=== PATIENT | female | born 1985 | race Two or more races ===

== ENCOUNTER 2024-10-20 01:15 | Emergency (ER) | payer OTHER ==
[~2024-10-20] VITALS: Ht 160 cm; Wt 93.9 kg
[~2024-10-20 01:15] MED LIST: KAPSPARGO SPRIN50 MG PO
[2024-10-20 01:22] VITALS: BP 158/85; O2SAT 98
[2024-10-20] MEDS ORDERED: CEFTRIAXONE SODIUM 1,000 MG VIAL ONE (02:41)
[2024-10-20] MEDS ORDERED: CEFTRIAXONE SODIUM 1,000 MG VIAL IM STA (02:42)
[2024-10-20] MEDS ORDERED: OxyCODONE HCL 5 MG TABLET (ROXICODONE) PO STA (02:42)
[2024-10-20] MEDS ORDERED: AMOX-CLAV 875-1 EACH PO (02:45)
[2024-10-20] MEDS ORDERED: TRAMADOL HCL50 MG PO (02:45)
== END 2024-10-20 03:11 ==
LOC: ER 01:37
DX: K08.89 Other specified disorders of teeth and supporting structures (principal); I10 Essential (primary) hypertension; Z91.040 Latex allergy status

== ENCOUNTER 2025-01-24 23:03 | Emergency (ER) | payer OTHER ==
[~2025-01-24] VITALS: Ht 160 cm; Wt 90.7 kg
[~2025-01-24 23:03] MED LIST changes: +AMOX-CLAV 875-1 EACH PO; +TRAMADOL HCL50 MG PO
[2025-01-25] MEDS ORDERED: ORPHENADRINE CITRATE 30 MG/ML AMPUL IM STA (05:58)
[2025-01-25] MEDS ORDERED: KETOROLAC TROMETHAMINE 60 MG VIAL IM STA (05:58)
[2025-01-25] MEDS ORDERED: DEXAMETHASONE SODIUM PHOSPHATE 4 MG/ML VIAL IM STA (05:59)
[2025-01-25] MEDS ORDERED: SODIUM CL 0.9% 25 ML IV.SOLN. IV PUSH STA (06:02)
[2025-01-25] MEDS ORDERED: KETOROLAC TROMETHAMINE 60 MG VIAL IM ONE (06:05)
[2025-01-25] MEDS ORDERED: ORPHENADRINE CITRATE 30 MG/ML AMPUL ONE (06:05)
[2025-01-25] MEDS ORDERED: DEXAMETHASONE SODIUM PHOSPHATE 4 MG/ML VIAL ONE (06:05)
[2025-01-25 07:53] LABS: URINE APPEARANCE Clear; URINE BILIRRUBIN Negative (NEGATIVE); URINE BLOOD Negative; URINE COLOR Yellow; URINE GLUCOSE Negative (NEGATIVE); URINE KETONE Negative (NEGATIVE); URINE LEUKOCYTE Negative; URINE NITRATE Negative; URINE PROTEIN Negative (NEGATIVE); URINE UROBILINOGEN 0.2 E.U./dl
[2025-01-25 07:55] LABS: BASO % 0.4 % (0.1-1.2); EOS # 0.15 (0.04-0.54); EOS % 1.6 % (0.7-7.0); LYMPH # 2.44 (1.18-3.74); LYMPH % 26.2 % (19.3-53.1); MEAN PLATELET VOLUME 10.80 fl (9.4-12.4); MONO # 0.88 (0.24-0.82); MONO % 9.5 % (4.7-12.5); NEUT # 5.77 (1.56-6.13); NEUT % 62.1 % (34.0-71.1); RED CELL DISTRIBUTION WIDTH 13.1 % (11.6-14.4)
[2025-01-25 07:57] LABS: URINE BACTERIA 1185.6 uL (0.0-1933); URINE EPITHELIAL CELLS 26.4 uL (0.0-38.8); URINE RBC 2.4 uL (0.0-20.8); URINE WBC 6.1 uL (0.0-23.2)
[2025-01-25 08:20] LABS: BUN CREA RATIO 18.0 (7.0-25.0); CREATININE SERUM 0.56 mg/dL (0.55-1.02); GFR 121.15; GLUCOSE FASTING 90.0 mg/dL (65-100); OSMOLALITY SERUM 280.0 MOSM/KG (275-295)
[2025-01-25 08:25] LABS: URINE CAST 0.00 uL (0.0-1.40)
== END 2025-01-25 12:07 | disposition home or self-care (01) ==
LOC: ER 23:03
PROVIDERS: General Practice
DX: N83.202 Unspecified ovarian cyst, left side (principal); N23 Unspecified renal colic; Z88.6 Allergy status to analgesic agent
CPT/HCPCS: 36415; 74177; Q9965